=== PATIENT | female | born 1965 | race Two or more races ===

== ENCOUNTER 2022-01-17 11:10 | Emergency (ER) | payer SELFPAY ==
[~2022-01-17] VITALS: Ht 154.9 cm; Wt 72.6 kg
[2022-01-17 13:39] LABS: Basophils # (auto) 0 10 ^3/uL (0-0.2); Basophils % (auto) 0.3 % (0.0-2.0); Eosinophils # (auto) 0 10 ^3/uL (0-0.8); Hematocrit 42.9 % (36.0-46.0); Hemoglobin 14.8 g/dL (12.2-16.2); Lymphocytes % (auto) 15.5 % (10.0-50.0); Mean Corpuscular Hemoglobin 32.3 pg (28.0-32.0); Mean Corpuscular Hgb Conc. 34.4 g/dL (32.0-36.0); Monocytes # (auto) 0.7 10 ^3/uL (0-1.3); Monocytes % (auto) 5.2 % (0.0-12.0); Nucleated Red Blood Cells % 0.2 %; Red Blood Cells 4.57 10^6/uL (4.0-5.20); Red Cell Distribution Width 14.1 % (11.8-14.3); White Blood Cell 12.7 10^3/uL (4.4-10.8)
[2022-01-17 13:58] LABS: Albumin 3.9 g/dL (3.4-5.0); Potassium 3.3 mmol/L (3.5-5.1)
[2022-01-17 14:04] LABS: BUN/Creatinine Ratio 16.7; Bilirubin, Total 0.5 mg/dL (0.2-1.0)
[2022-01-17] MEDS ORDERED: MORPHINE SULFATE 4 MG/ML SYR/VIAL IV ONE (14:15)
[2022-01-17] MEDS ORDERED: cloNIDine HCL 0.1 MG TAB PO ONE (14:15)
[2022-01-17] MEDS ORDERED: PROMETHAZINE HCL 25 MG/ML 1ML IV ONE ×2 (14:15→19:00)
[2022-01-17 15:14] LABS: Urine Bacteria MANY /hpf (None Seen); Urine Blood TRACE /uL (Negative); Urine Hyaline Cast FEW /lpf (0 - 2); Urine Mucus FEW (None Seen); Urine WBC 14 /hpf (0 - 5)
[2022-01-17] MEDS ORDERED: cefTRIAXone 1GM/50ML D5W 50 ML IV ONE (16:15)
[2022-01-17] MEDS ORDERED: hydrALAZINE HCL 20 MG/ML VL IV ONE (17:45)
[2022-01-17] MEDS ORDERED: PROCHLORPERAZINE EDISYLATE 5 MG/ML 2ML VIAL IV ONE (17:45)
[2022-01-17] MEDS ORDERED: PROC10TA2 PO (18:54)
[2022-01-17] MEDS ORDERED: OLME40TA26 PO (18:54)
[2022-01-17] MEDS ORDERED: NAP500T PO (18:54)
[2022-01-17] MEDS ORDERED: HYDR-4902 PO (18:54)
[2022-01-17] MEDS ORDERED: CIPR-173 PO (18:54)
[2022-01-17] MEDS ORDERED: CYCL-837 PO (18:54)
[2022-01-17] MEDS ORDERED: SODIUM CHLORIDE 0.9% 1,000 ML IV ONE (19:00)
[2022-01-17] MEDS ORDERED: LABETALOL HCL 5 MG/ML 4ML SYRINGE IV ONE (19:00)
[2022-01-18 01:04] VITALS: BP 169/86
[2022-01-18] MEDS ORDERED: NITR-87 PO (01:11)
== END 2022-01-18 01:21 | disposition home or self-care (01) ==
LOC: ER 11:10
DX: N10 Acute pyelonephritis (principal); I10 Essential (primary) hypertension; E87.6 Hypokalemia; R73.9 Hyperglycemia, unspecified; Z90.49 Acquired absence of other specified parts of digestive tract
CPT/HCPCS: 36415; 74176; 80053; 81001; 85025; 93005; 96361; 96365; 96375; 96376; 99285; J0360; J0696; J0780; J2270; J2550; J3490; J7030